=== PATIENT | male | born 1985 | race Caucasian/White ===

== ENCOUNTER 2020-07-09 10:56 | Emergency (ER) | payer MEDICAID ==
[~2020-07-09] VITALS: Ht 188 cm; Wt 99.8 kg
[2020-07-09 11:05] VITALS: Ht 188 cm; Wt 99.8 kg
[2020-07-09 13:31] VITALS: BP 147/97
== END 2020-07-09 13:31 | disposition other institution (70) ==
LOC: ED 10:56
DX: S02.2XXA Fracture of nasal bones, initial encounter for closed fracture (principal); S05.11XA Contusion of eyeball and orbital tissues, right eye, initial encounter; F15.10 Other stimulant abuse, uncomplicated; Z02.79 Encounter for issue of other medical certificate; Y04.2XXA Assault by strike against or bumped into by another person, initial encounter; Y93.89 Activity, other specified; Y92.89 Other specified places as the place of occurrence of the external cause; Y99.8 Other external cause status

== ENCOUNTER 2020-07-09 10:56 | Emergency (ER) | payer OTHER | END 2020-07-09 13:31 | disposition other institution (70) | LOC: ED 10:56 | DX: Z02.89 Encounter for other administrative examinations (principal) ==